=== PATIENT | female | born 1955 | race Hispanic/Latino ===

== ENCOUNTER 2025-06-23 00:08 | Emergency (ER) | payer MEDICARE, SELFPAY ==
--- NOTE | ~2025-06-23 | CT_ITS ---
Noncontrast CT scan of the cervical spine Technique: Multiple contiguous axial [address] images of the cervical spine were obtained and rec onstructed in 2D sagittal and coronal planes on the acquisition scanner. Dose reduction technique was used on this scan by utilizing automated exposure control, adjustment of the mA and/or kV according to patient size. The dose-length product (DLP) was 478.03 mGy-cm. Clinical History: Pain Findings: No fractures or dislocations. There is straightening of the normal cervical lordosis. Ther e are scattered facet joint degenerative changes, worst at the right side at C4-C5. The intervertebra l disc spaces are preserved. No prevertebral soft tissue swelling. Impression: No fracture or subluxation of the cervical spine. Degenerative changes, as above. Reviewed, dictated and finalized at location . Impression: No fracture or subluxation of the cervical spine. Degenerative changes, as above.
--- NOTE | ~2025-06-23 | CT_ITS ---
Non-contrast Head CT History: Head injury Technique: Axial non-contrast imaging of the brain was performed. Dose reduction technique was used on this scan by utilizing automated exposure control and iterative reconstruction technique. The dose -length product (DLP) was 681.00 mGy-cm. Findings: There is no evidence of intracranial hemorrhage, mass lesion, or acute infarct. Brain par enchyma appears normal. The ventricles and subarachnoid spaces are normal in size. The calvarium ap pears normal. The visualized paranasal sinuses and mastoid air cells are clear. Impression: No significant abnormality seen. Reviewed, dictated and finalized at location . Impression: No significant abnormality seen.
[2025-06-23 00:21] VITALS: BP 136/76; PULSE 66; RESP 17; TEMP 36.1; O2SAT 99
--- NOTE | 2025-06-23 04:41 | ED.HEATRA ---
HPI - Head Injury General Chief complaint: Head Injury Stated complaint: slipped and hit head while showering Time Seen by Provider: 06/23/25 04:22 Source: patient Limitations: no limitations History of Present Illness HPI Narrative: Patient presents after slipping while showering and hitting head. No LOC. Not on anticoagulation. Left hematoma at the top/side which is where she is experiencing pain. Pain 6/10 severity. Related Data Allergies Allergy/AdvReac Type Severity Reaction Status Date / Time No Known Allergies Allergy Verified 06/23/25 00:09 [facility] Social History Social History Occupation/Education: retired Exam Narrative: GENERAL: Well-appearing, well-nourished, and in no acute distress. HEAD: L scalp hematoma. EYES: Non injected, non icteric ENT: Nares clear, no rhinorrhea or epistaxis. Gross auditory acuity intact. NECK: Supple. No meningismus. CHEST: Speaking in full sentences. No respiratory distress. HEART: Regular rate and rhythm. . ABDOMEN: Soft, nondistended. No rigidity or guarding. Not peritoneal EXTREMITIES: Normal range of motion. No lower extremity edema. SKIN: Warm, dry, no rash. NEURO: No focal deficits. Alert and oriented. Answering questions. Following commands. Normal speech without aphasia or dysarthria. PSYCH: Normal mood and affect. Course Vital Signs Vital signs: Vital Signs Temperature 97.0 F L 06/23/25 00:21 Pulse Rate 66 06/23/25 00:21 Respiratory Rate 17 06/23/25 00:21 Blood Pressure 136/76 06/23/25 00:21 Pulse Oximetry 99 06/23/25 00:21 Oxygen Delivery Room Air 06/23/25 00:21 Temperature 97.0 F L 06/23/25 00:21 Pulse Rate 66 06/23/25 00:21 Respiratory Rate 17 06/23/25 00:21 Blood Pressure 136/76 06/23/25 00:21 Pulse Oximetry 99 06/23/25 00:21 Oxygen Delivery Room Air 06/23/25 00:21 MDM - Head Injury MDM Narrative Medical decision making narrative: Patient presents with head pain after slipping and falling in shower. In the emergency department they are afebrile with vital signs within normal limits. Imaging negative for acute process. Discharged with Rx for OTC analgesics. Advised follow up. Stable for DC. Differential Diagnosis Differential diagnosis: Likely concussion without loss of consciousness, closed head injury, subarachnoid hematoma, postconcussion syndrome, subdural hematoma and other (c spine injury) Imaging Data Radiologist's impression: CT C-spine without contrast Stat Rad: Multilevel degenerative change. No acute findings. No evidence of fracture. CT head stat rad no acute intracranial findings. No intracranial hemorrhage. Discharge Plan Discharge Clinical Impression: Fall in shower, Traumatic hematoma of head Patient Disposition: Home Condition: Stable Instructions: Antibiotic Form, Fall Prevention (ED), Hematoma (ED) Additional Instructions: No bleeding in the brain or broken bones in the neck like we discussed. Acetaminophen/Tylenol (maximum 4000 mg per day) is safe to take with NSAIDs (ibuprofen/Motrin) for pain relief. Follow-up with your primary care physician as needed. If you do not have a primary care physician the name of the doctors listed below. Alternatively, there is a provider that speaks Palestinian if you prefer though I do not know if they are accepting patients. Her name is Yodit Lin ([phone]). Return to the emergency department any new or worsening symptoms. Patient Language: Palestinian Prescriptions: New ibuprofen 600 mg tablet 600 mg PO TID PRN (Reason: pain) Qty: 20 0RF acetaminophen 500 mg capsule 1,000 mg PO Q6H PRN (Reason: pain) Qty: 30 0RF Follow-up/Referrals: PHYSICIAN,[employer] [Primary Care Provider] - Cj Dacosta MD [Physician] - Time of Disposition: 05:19
--- OUTSIDE RECORDS SUMMARY | 2025-06-23 04:55 | XMS_ITS ---
Author Organization [facility] Address [address] [place] [address] Care Team Providers Care Signals Intelligence Analysis Manager Name Role Phone MD Brandon Garcia Primary Care Provider Unavail able Gabino Channing Unavailable [phone] Gogia, Shawna Unavailable Unavailable Trixie Rojas Unavailable [phone] REASON FOR VISIT CONSTIPATION Encounters Encounter Location Date Provider Diagnosis [facility] [address] [facility] [address] [place] [address] 01/06/2024 Trixie Rojas Plan Of Treatment No Information Progress Notes * Jaz CLEANINGDOB: [birth year] (69 yo F)Acc No.[id number]:01/06/2024 Progress Notes Patient: Jaz WOODS Provider: Vane Rojas PA-C :1955 A ge:68 Y S ex:Female Date:01/06/2024 Address:[address], [id number] Pcp:MD Brandon Garcia Subjective: * Chief Complaints: * 1 . CONSTIPATION. * Medical History: Objective: * Vitals: Assessment: Plan: * Treatment: * Images: * Electronic signature of Trixie Rojas PA-C on 06/23/2025 at 04:55 AM CDT Sign off status: Pending * Provider: Vane Rojas PA-C Date: 0 01/06/2024 Generated for Axel murillo/Richard/eTransmitting on: 0 06/23/2025 04:55 AM CDT
--- OUTSIDE RECORDS SUMMARY | 2025-06-23 04:55 | XMS_ITS ---
Author Organization [facility] Address [address] [place], [place] [id number] Care Team Providers Care Superintendent Terminal Name Role Phone WREN, LILA Unavailable [phone] BING VASQUES Unavailable Unavailable REASON FOR VISIT #NEW CONSULT Encounters Encounter Location Date Provider Diagnosis [facility] [address] [place], [place] [id number] 07/13/2024 LILA WREN Plan Of Treatment No Information Progress Notes * ELOISA HARVEYDOB: [birth year] (69 yo F)Acc No.[id number]:07/13/2024 Progress Notes Patient: ELOISA STEVEN Provider: Delmy Wren MD :1955 A ge:68 Y S ex:Female Date:07/13/2024 Address:[address], [id number] Subjective: * Chief Complaints: * 1 . #NEW CONSULT. * Medical History: Objective: * Vitals: Assessment: Plan: * Treatment: * Billing Information: * Visit Code: * Procedure Codes: * Electronic signature of LILA WREN MD on 06/23/2025 at 04:55 AM CDT Sign off status: Pending * Provider: Delmy Wren MD Date: 07/13/2024 Generated for Printi ng/Faxing/eTransmitting on: 06/23/2025 04:55 AM CDT
--- OUTSIDE RECORDS SUMMARY | 2025-06-23 04:55 | XMS_ITS | Patient Health Record ---
Author Organization [facility] Address [address] [place] [address] Care Team Providers Care Emergency Crew Supervisor Name Role Phone MD Brandon Garcia Primary Care Provider Unavail able Channing Lloyd Unavailable [phone] Gogia, Shawna Unavailable Unavailable Allergies No Known Allergies Reason For Referral No Information Medications Medication SIG (Take, Route, Fr equency, Duration) Notes Start Date End Date Status famotidine 20 mg 1 tab(s) orally 2 ti mes a day; Duration: 30 days 11/09/2022 Not-Taking Aspir 81 Active lisinopril Active atorvastatin Active metFORMIN Active montelukast Active solifenacin Active Problems Problem Type SNOMED Code ICD Code Onset Dates Problem Status W/U Status Risk Notes Problem Constipation (74094938) CONSTIPATION NOS (564.00) Active confirmed Problem Gastroesophageal reflux disease (disorder) (374178574) GERD [Gastroesophagea l reflux disease] (530.81) Active confirmed Problem Hyperlipidemia (21048159) Hyperlipidemia, unspecified (E78.5) Active confirmed Problem Type II diabetes mellitus without complication (621103898) Type 2 diabetes mellitus without complications (E11.9) Active confirmed Problem Obesity (643847040) Obesity, unspecified (E66.9) Active confirmed Problem Heartburn (99272343) Heartburn (R12) Active confirmed Problem Chronic idiopathic constipation (19870910) Chronic idiopathic constipation (K59.04) Active confirmed Plan Of Treatment Pending Test Test Name Order Date Colonoscopy 10/06/2010 Colonoscopy 10/24/2022 Insurance Providers Payer Name Payer Address Payer Phone Subscriber Number Group Number Insured Name Patient Relationship to Insured Coverage Start Date Coverage End Date [facility] [address] [place] [phone] [id number] Jaz Cleaning Self - patient is the insured Medical (General) History Medical History History ICD Code Shoulder pain GERD h/o gallstones Hyperlipidemia Type II diabetes Chronic constipation Obesity Surgical History Surgery Date(Month/Year) Appendectomy Cholecystectomy Oophorectomy
--- OUTSIDE RECORDS SUMMARY | 2025-06-23 04:55 | XMS_ITS | Patient Health Record ---
Author Organization [facility] Address [address] [place], [place] [address] Care Team Providers Care Plastic Production Machine Setter Name Role Phone LILA WREN Unavailable [phone] BING VASQUES Unavailable Unavailable Allergies No Known Allergies Results Component Value Reference Range Notes Hemoglobin A1c Reviewed date:09/23/2024 10:28:01 AM Interpretation: Performing Lab: Notes/Report: Hemoglobin A1c 7.0 Hemoglobin A1c Reviewed date:01/21/2025 10:35:32 AM Interpretation: Performing Lab: Notes/Report: Hemoglobin A1c 6.9 Reason For Referral No Information Medications Medication SIG (Take, Route, Frequency, Duration) Notes Start Date End Date Status metFORMIN HCl 500 MG 1 tablet with a mariia l Orally twice a day Active Atorvastatin Calcium 20 MG 1 tablet Oral ly Once a day Active Solifenacin Succinate 5 MG 1 tablet Oral ly Once a day Active metFORMIN HCl 1000 MG 1 tablet with jing kfast and dinner Orally twice a day; Duration: 90 days 06/23/2024 Active Lisinopril 5 MG 1 tablet Orally Once a day Active Jardiance 25 MG 1 tablet Orally Once a day; Duration: 30 days 06/23/2024 01/16/2026 Active Montelukast Sodium 10 MG 1 tablet Orally Once a day Active Problems Problem Type SNOMED Code ICD Code Onset Dates Problem Status W/U Status Risk Notes Problem Overweight (597911753) Overweight (E66.3) Active confirmed Problem Essential hypertension (84243512) Essential (primary) hypertension (I10) Active confirmed Problem Hyperglycemia due to type 2 diabetes mellitus (991282659232882) Type 2 diabetes mellitus with hyperglycemia, unspecified whether longterm insulin use (E11.65) Active confirmed Problem Hypothyroidism (69805185) Hypothyroidism, unspecified type (E03.9) Active confirmed Problem Hyperlipidaemia (29698540) Hyperlipidemia, unspecified hyperlipidemia type (E78.5) Active confirmed Problem Obesity (463257100) Obesity, unspecified classification, unspecified obesity type, unspecified whether serious comorbidity present (E66.9) Active confirmed Vital Signs Heart Rate 60 /min 01/21/2025 Temperature 98.5 degrees Fahrenheit 01/21/2025 Respiratory Rate 15 /min 01/21/2025 Oximetry 94 % 01/21/2025 Blood pressure diastolic 69 mm Hg 01/21/2025 Weight-kg 68.95 kg 01/21/2025 Height 62 in 01/21/2025 Blood pressure systolic 128 mm Hg 01/21/2025 Weight 152 lbs 01/21/2025 BMI 27.8 kg/m2 01/21/2025 Encounters Encounter Location Date Provider Diagnosis [facility] [address] [place], [place] [phone] 06/23/2024 LILA WREN Type 2 diabetes mellitus with hyperglycemia, unspecified whether longterm insulin use E11.65 ; Essential (primary) hypertension I10 ; Hyperlipidemia, unspecified hyperlipidemia type E78.5 and Overweight E66.3 [facility] [address] [place] [address] [address] [id number] 09/23/2024 LILA WREN Type 2 diabetes mellitus with hyperglycemia, unspecified whether termite treater insulin use E11.65 ; Essential (primary) hypertension I10 ; Hyperlipidemia, unspecified hyperlipidemia type E78.5 and Overweight E66.3 [facility] [address] [place] [address] [id number] 01/21/2025 LILA WREN Type 2 diabetes mellitus with hyperglycemia, unspecified whether longterm insulin use E11.65 ; Essential (primary) hypertension I10 ; Hyperlipidemia, unspecified hyperlipidemia type E78.5 and Overweight E66.3 [facility] [address] [place] [address] [id number] 07/24/2024 LILA WREN Assessments Encounter Date Diagnosis (ICD Code) Assessment Notes Treatment Notes Treatment Clinical Notes Section Notes 06/23/2024 Essential (primary) hypertension (ICD-10 - I10) Current regimen: Metformin 500 mg twice per day, atorvastatin 40 mg daily, lisinopril 5 mg daily Patient denies diabetic nephropathy or retinopathy. Denies any recent hospital admission for hyperglycemia. 05/14/24: hba1c 10.7% 10/2023: hba1c 8.6% patient type 2 diabetes mellitus is uncontrolled with glucose running between 100 to 250 mg/dL but glucose log is not available. Recommend to start more non-insulin agents 06/23/2024 Type 2 diabetes mellitus with hyperglycemia, unspecified whether termite treater insulin use (ICD-10 - E11.65) Current regimen: Metformin 500 mg twice per day, atorvastatin 40 mg daily, lisinopril 5 mg daily Patient denies diabetic nephropathy or retinopathy. Denies any recent hospital admission for hyperglycemia. 05/14/24: hba1c 10.7% 10/2023: hba1c 8.6% patient type 2 diabetes mellitus is uncontrolled with glucose running between 100 to 250 mg/dL but glucose log is not available. Recommend to start more non-insulin agents 09/23/2024 Type 2 diabetes mellitus with hyperglycemia, unspecified whether termite treater insulin use (ICD-10 - E11.65) Current regimen: Metformin 500 mg twice per day, atorvastatin 40 mg daily, lisinopril 5 mg daily, jardiance 25 mg daily. Patient denies diabetic nephropathy or retinopathy. Denies any recent hospital admission for hyperglycemia. 05/14/24: hba1c 10.7% 10/2023: hba1c 8.6% patient type 2 diabetes mellitus is uncontrolled with glucose running between 100 to 190 mg/dL but glucose log is not available. 09/23/24: hba1c 7.0% 01/21/2025 Type 2 diabetes mellitus with hyperglycemia, unspecified whether longterm insulin use (ICD-10 - E11.65) Current regimen: Metformin 500 mg twice per day, atorvastatin 40 mg daily, lisinopril 5 mg daily, jardiance 25 mg daily. Patient denies diabetic nephropathy or retinopathy. Denies any recent hospital admission for hyperglycemia. 05/14/24: hba1c 10.7% 10/2023: hba1c 8.6% patient type 2 diabetes mellitus is uncontrolled with glucose running between 100 to 190 mg/dL but glucose log is not available. 09/23/24: hba1c 7.0% 11/06/24: hbA1C 6.9% a.m. glucose running 100 to 130 mg/dL. p.m. glucose running 130 to 140 mg/dL. 01/21/2025 Essential (primary) hypertension (ICD-10 - I10) Current regimen: Metformin 500 mg twice per day, atorvastatin 40 mg daily, lisinopril 5 mg daily, jardiance 25 mg daily. Patient denies diabetic nephropathy or retinopathy. Denies any recent hospital admission for hyperglycemia. 05/14/24: hba1c 10.7% 10/2023: hba1c 8.6% patient type 2 diabetes mellitus is uncontrolled with glucose running between 100 to 190 mg/dL but glucose log is not available. 09/23/24: hba1c 7.0% 11/06/24: hbA1C 6.9% a.m. glucose running 100 to 130 mg/dL. p.m. glucose running 130 to 140 mg/dL. 09/23/2024 Essential (primary) hypertension (ICD-10 - I10) Current regimen: Metformin 500 mg twice per day, atorvastatin 40 mg daily, lisinopril 5 mg daily, jardiance 25 mg daily. Patient denies diabetic nephropathy or retinopathy. Denies any recent hospital admission for hyperglycemia. 05/14/24: hba1c 10.7% 10/2023: hba1c 8.6% patient type 2 diabetes mellitus is uncontrolled with glucose running between 100 to 190 mg/dL but glucose log is not available. 09/23/24: hba1c 7.0% 06/23/2024 Hyperlipidemia, unspecified hyperlipidemia type (ICD-10 - E78.5) Current regimen: Metformin 500 mg twice per day, atorvastatin 40 mg daily, lisinopril 5 mg daily Patient denies diabetic nephropathy or retinopathy. Denies any recent hospital admission for hyperglycemia. 05/14/24: hba1c 10.7% 10/2023: hba1c 8.6% patient type 2 diabetes mellitus is uncontrolled with glucose running between 100 to 250 mg/dL but glucose log is not available. Recommend to start more non-insulin agents 06/23/2024 Overweight (ICD-10 - E66.3) Current regimen: Metformin 500 mg twice per day, atorvastatin 40 mg daily, lisinopril 5 mg daily Patient denies diabetic nephropathy or retinopathy. Denies any recent hospital admission for hyperglycemia. 05/14/24: hba1c 10.7% 10/2023: hba1c 8.6% patient type 2 diabetes mellitus is uncontrolled with glucose running between 100 to 250 mg/dL but glucose log is not available. Recommend to start more non-insulin agents 09/23/2024 Hyperlipidemia, unspecified hyperlipidemia type (ICD-10 - E78.5) Current regimen: Metformin 500 mg twice per day, atorvastatin 40 mg daily, lisinopril 5 mg daily, jardiance 25 mg daily. Patient denies diabetic nephropathy or retinopathy. Denies any recent hospital admission for hyperglycemia. 05/14/24: hba1c 10.7% 10/2023: hba1c 8.6% patient type 2 diabetes mellitus is uncontrolled with glucose running between 100 to 190 mg/dL but glucose log is not available. 09/23/24: hba1c 7.0% 01/21/2025 Hyperlipidemia, unspecified hyperlipidemia type (ICD-10 - E78.5) Current regimen: Metformin 500 mg twice per day, atorvastatin 40 mg daily, lisinopril 5 mg daily, jardiance 25 mg daily. Patient denies diabetic nephropathy or retinopathy. Denies any recent hospital admission for hyperglycemia. 05/14/24: hba1c 10.7% 10/2023: hba1c 8.6% patient type 2 diabetes mellitus is uncontrolled with glucose running between 100 to 190 mg/dL but glucose log is not available. 09/23/24: hba1c 7.0% 11/06/24: hbA1C 6.9% a.m. glucose running 100 to 130 mg/dL. p.m. glucose running 130 to 140 mg/dL. 01/21/2025 Overweight (ICD-10 - E66.3) Current regimen: Metformin 500 mg twice per day, atorvastatin 40 mg daily, lisinopril 5 mg daily, jardiance 25 mg daily. Patient denies diabetic nephropathy or retinopathy. Denies any recent hospital admission for hyperglycemia. 05/14/24: hba1c 10.7% 10/2023: hba1c 8.6% patient type 2 diabetes mellitus is uncontrolled with glucose running between 100 to 190 mg/dL but glucose log is not available. 09/23/24: hba1c 7.0% 11/06/24: hbA1C 6.9% a.m. glucose running 100 to 130 mg/dL. p.m. glucose running 130 to 140 mg/dL. 09/23/2024 Overweight (ICD-10 - E66.3) Current regimen: Metformin 500 mg twice per day, atorvastatin 40 mg daily, lisinopril 5 mg daily, jardiance 25 mg daily. Patient denies diabetic nephropathy or retinopathy. Denies any recent hospital admission for hyperglycemia. 05/14/24: hba1c 10.7% 10/2023: hba1c 8.6% patient type 2 diabetes mellitus is uncontrolled with glucose running between 100 to 190 mg/dL but glucose log is not available. 09/23/24: hba1c 7.0% 06/23/2024 Other Increase metformin to 1000 mg twice per day. Start Jardiance 25 mg dailyIf persistent hyperglycemia then start more non-insulin agents.Needs glucose data at next visitCheck glucose 2 times per day.Patient was educated on diabetes and its complications.Ve rbal and written hypoglycemia precautions given.Cut down high carbs food and start daily exercise.All questions answered and patient verbalized udnerstanding.Re visit in 3 months. Thanks for allowing me to participate in patient care and will continue to follow up. Current regimen: Metformin 500 mg twice per day, atorvastatin 40 mg daily, lisinopril 5 mg daily Patient denies diabetic nephropathy or retinopathy. Denies any recent hospital admission for hyperglycemia. 05/14/24: hba1c 10.7% 10/2023: hba1c 8.6% patient type 2 diabetes mellitus is uncontrolled with glucose running between 100 to 250 mg/dL but glucose log is not available. Recommend to start more non-insulin agents 09/23/2024 Other Increase metformin to 1000 mg twice per day. continue Jardiance 25 mg dailyIf hyperglycemia then start more non-insulin agents.Needs glucose data at next visitCheck glucose 2 times per day.Patient was educated on diabetes and its complications.Ve rbal and written hypoglycemia precautions given.Cut down high carbs food and start daily exercise.All questions answered and patient verbalized udnerstanding.Re visit in 3 months. Current regimen: Metformin 500 mg twice per day, atorvastatin 40 mg daily, lisinopril 5 mg daily, jardiance 25 mg daily. Patient denies diabetic nephropathy or retinopathy. Denies any recent hospital admission for hyperglycemia. 05/14/24: hba1c 10.7% 10/2023: hba1c 8.6% patient type 2 diabetes mellitus is uncontrolled with glucose running between 100 to 190 mg/dL but glucose log is not available. 09/23/24: hba1c 7.0% 01/21/2025 Other Continue metformin to 1000 mg twice per day. Continue Jardiance 25 mg dailyIf hyperglycemia then start more non-insulin agents.Needs glucose data at next visitCheck glucose 2 times per day.Patient was educated on diabetes and its complications.Ve rbal and written hypoglycemia precautions given.Cut down high carbs food and start daily exercise.All questions answered and patient verbalized udnerstanding.Re visit in 6 months. Current regimen: Metformin 500 mg twice per day, atorvastatin 40 mg daily, lisinopril 5 mg daily, jardiance 25 mg daily. Patient denies diabetic nephropathy or retinopathy. Denies any recent hospital admission for hyperglycemia. 05/14/24: hba1c 10.7% 10/2023: hba1c 8.6% patient type 2 diabetes mellitus is uncontrolled with glucose running between 100 to 190 mg/dL but glucose log is not available. 09/23/24: hba1c 7.0% 11/06/24: hbA1C 6.9% a.m. glucose running 100 to 130 mg/dL. p.m. glucose running 130 to 140 mg/dL. Plan Of Treatment No Information Insurance Providers Payer Name Payer Address Payer Phone Subscriber Number Group Number Insured Name Patient Relationship to Insured Coverage Start Date Coverage End Date [facility] [address] [place] [address] [id number] ELOISA HARVEY Self - patient is the insured Medical (General) History Medical History History ICD Code Type 2 diabetes mellitus, hypertension, hyperlipidemia, obesity Surgical History Surgery Date(Month/Year) History of cholecystectomy
[2025-06-23] MEDS: ACETAMINOPHEN 500 MG TABLET 1000 MG PO (05:37)
[2025-06-23] MEDS: IBUPROFEN 600 MG TABLET PO (05:38)
== END 2025-06-23 05:41 | disposition home or self-care (01) ==
PROVIDERS: Emergency Provider Student in an Organized Health Care Education/Training Program
DX: S00.03XA Contusion of scalp, initial encounter (principal); W18.2XXA Fall in (into) shower or empty bathtub, initial encounter
CPT/HCPCS: 70450; 72125; 99284; A9270